=== PATIENT | female | born 1935 | race Caucasian/White ===

== ENCOUNTER 2017-01-02 19:14 | Emergency (ER) | payer MEDICARE, BC ==
[2017-01-02 19:36] VITALS: BP 146/56
--- NOTE | 2017-01-02 19:49 | EDM.PDOC ---
ED HPI GENERAL MEDICAL PROBLEM - General Chief Complaint: General Stated Complaint: POSS FALL HEADACHE Time Seen by Provider: 01/02/17 19:30 Source of Information: Reports: Patient History Limitations: Reports: Altered Mental Status (Dementia) - History of Present Illness INITIAL COMMENTS - FREE TEXT/NARRATIVE: Patient is a 81-year-old female with history of dementia/Alzheimer's who presents ED complaining of a headache, pain to the posterior aspect of her neck , and cervical neck pain. Daughter is present and states patient's mentation is unchanged. Patient recently moved from [place] to [facility]. Patient was eloping from [facility] every day for approximately 2-3 weeks. This past Sunday patient was found sitting on the floor. It was unknown if the patient fell or was just sitting down. Time. Today staff felt a small bump to the posterior aspect of the patient's head with pain present. They 're concerned the patient may have fallen. Daughter states patient does have issues with easily being aggravated. Staff states patient has been noncooperative with eating this morning. Thus not all her medications have been provided. Patient has history of asphagia as well with no new changes. Daughter noticed while driving the patient to the walk-in clinic to be evaluated that every time she pressed the brake patient will complain of pain to the posterior aspect of her head and neck. Patient did walk into the ED on her own accord with minimal difficulties. Patient does shuffle her feet which is normal. She is on a baby aspirin daily. No anticoagulants. 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: Other (see below) Other Treatments BALL ROLLING MACHINE OPERATOR: massage - Related Data Allergies Allergy/AdvReac Type Severity Reaction Status Date / Time amoxicillin Allergy Rash Verified 01/02/17 19:36 Home Meds: Home Meds Aspirin 81 mg PO DAILY 01/02/17 [History] Calcium Carbonate/Vitamin D3 [Calcium 500 + Vit D Caplet] 1 each PO DAILY [History] Cholecalciferol (Vitamin D3) [Vitamin D3] 1,000 unit PO DAILY 01/02/17 [History] Insulin Aspart [NovoLOG] 100 unit SUBCUT DAILY 01/02/17 [History] Insulin Aspart [Novolog] 6 units SQ BID 01/02/17 [History] Insulin Glarg,Human.Rec.Analog [LantUS] 24 unit SUBCUT DAILY 01/02/17 [History] LORazepam [Ativan] 0.5 mg PO Q8H PRN 01/02/17 [History] Lanolin/Min Oil/Petrolatum [Artificial Tears] 1 drop EYEBOTH BID 01/02/17 [ History] Latanoprost [Xalatan 0.005% Ophth Soln] 1 drop EYEBOTH 1400 01/02/17 [History] Levothyroxine Sodium [Synthroid] 75 mcg PO ACBREAKFAST 01/02/17 [History] Losartan [Cozaar] 50 mg PO BID 01/02/17 [History] Southview-3 Fatty Acids [Southview-3] 2,000 mg PO DAILY 01/02/17 [History] Omeprazole 20 mg PO DAILY 01/02/17 [History] PARoxetine HCl [Paxil] 10 mg PO DAILY 01/02/17 [History] Vit A,C & E/Lutein/Minerals [Healthy Eyes] 1 each PO DAILY 01/02/17 [History] Social & Family History - Tobacco Use Smoking Status *Q: Never Smoker - Recreational Drug Use Recreational Drug Use: No ED ROS GENERAL - Review of Systems Review Of Systems: See Below (difficult to obtain from patient. Daughter asks most questions.) Constitutional: Reports: Decreased Appetite. Denies: Fever, Chills, Malaise Respiratory: Reports: No Symptoms Cardiovascular: Reports: No Symptoms GI/Abdominal: Reports: No Symptoms Musculoskeletal: Reports: Neck Pain. Denies: Shoulder Pain, Arm Pain, Back Pain , Hand Pain, Leg Pain, Foot Pain Skin: Denies: Bruising Neurological: Reports: Headache. Denies: Numbness, Syncope, Tingling, Trouble Speaking, Difficulty Walking Psychiatric: Reports: No Symptoms ED EXAM, GENERAL - Physical Exam Exam: See Below Exam Limited By: No Limitations General Appearance: Alert, WD/WN, No Apparent Distress Eye Exam: Bilateral Eye: EOMI, PERRL Ears: Normal External Exam, Hearing Grossly Normal Nose: Normal Inspection Throat/Mouth: Normal Voice, No Airway Compromise Head: Other (small bump/hematoma to the posterior aspect of the head with only minimal pain. ). No: Facial Swelling, Facial Tenderness, Sinus Tenderness Neck: Normal Inspection, Supple, Limited Range of Motion, Tender Midline Respiratory/Chest: No Respiratory Distress, Lungs Clear, Normal Breath Sounds, No Accessory Muscle Use, Chest Non-Tender Cardiovascular: Normal Peripheral Pulses, Regular Rate, Rhythm Peripheral Pulses: 2+: Radial (R) GI/Abdominal: Normal Bowel Sounds, Soft, Non-Tender, No Organomegaly, No Distention, Pelvis Stable Back Exam: Normal Inspection, Full Range of Motion. No: Paraspinal Tenderness, Vertebral Tenderness Extremities: Normal Inspection, Normal Range of Motion, Non-Tender, No Pedal Edema, Normal Capillary Refill Neurological: Alert, Oriented (to self), CN II-XII Intact, Normal Cognition, No Motor/Sensory Deficits Psychiatric: Normal Affect, Normal Mood Skin Exam: Warm, Dry, Intact, Normal Color Course - Vital Signs Last Recorded V/S: Last Vital Signs Temp 98.1 F 01/02/17 19:25 Pulse 61 01/02/17 19:25 Resp 19 01/02/17 19:25 BP 146/56 H 01/02/17 19:25 Pulse Ox 100 01/02/17 19:25 - Orders/Labs/Meds Orders: Active Orders 24 hr Category Date Time Status Cervical Spine wo Cont [CT] Stat Exams 01/02/17 19:43 Taken Head wo Cont [CT] Stat Exams 01/02/17 19:43 Taken Meds: Medications Discontinued Medications Generic Name Dose Route Start Last Admin Trade Name Jarrettq PRN Reason Stop Dose Admin Acetaminophen 975 mg 01/02/17 20:10 01/02/17 20:30 Tylenol PO 01/02/17 20:11 975 mg NOW ONE Administration - Re-Assessments/Exams Free Text/Narrative Re-Assessment/Exam: Will obtain CT of the head and neck. Patient is acting appropriately. He's she' s had no new medication changes per daughter. She has minimal complaints at this time. Blood work was obtained by [facility] a few days ago thus will attempt to obtain results. At this point do not believe blood work or UA would be needed. Patient's mentation is unchanged. Blood sugar was obtained at 1738 with results of 190. Reviewed shelter notes. Patient per nursing staff recently had [facility]. These results were not available. I discussed with daughter in obtaining labs at this time. We have opted not to obtain labs or UA. Patients mentation is unchanged and she has minimal complaints. Believe this would only aggravate the patient by obtaining labs. 01/02/17 21:28 CT of the head revealed no evidence for acute transcortical infarct, acute hemorrhage, or mass effect. CT of the cervical spine impression : No acute fracture or traumatic subluxation. Patient is resting comfortably in bed. Patient did get pain relief with the above therapy. Will discharge patient home with instructions as as documented. Departure - Departure Time of Disposition: 21:31 Disposition: Home, Self-Care 01 Condition: Good Clinical Impression: Neck pain Headache Qualifiers: Headache type: unspecified Headache chronicity pattern: acute headache Intractability: not intractable Qualified Code(s): R51 - Headache - Discharge Information Referrals: Edgard Mcelroy MD [Primary Care Provider] - Forms: ED Department Discharge Additional Instructions: CT the head and neck did not reveal any acute abnormalities. On physical examination patient had no additional concerning findings. Mentation was unchanged thus no lab work was obtained at this point. Please follow up with PCP in the next week for reevaluation. Return to ED as needed for any new or worsening symptoms. Patient can take Tylenol 650 mg every 4 to 6 hours as needed for pain. - My Orders Last 24 Hours: My Active Orders 01/02/17 19:43 Cervical Spine wo Cont [CT] Stat Head wo Cont [CT] Stat - Assessment/Plan Last 24 Hours: My Active Orders 01/02/17 19:43 Cervical Spine wo Cont [CT] Stat Head wo Cont [CT] Stat
[2017-01-02] MEDS ORDERED: Acetaminophen 325 MG Tab PO ONE (20:10)
--- NOTE | 2017-01-03 08:01 | CT ---
Head CT Technique: Multiple axial sections through the brain were obtained. Intravenous contrast was not utilized. Some sections were repeated due to motion. Comparison: Previous head CT exam of 02/03/15. Findings: Ventricles along with basal cisterns and sulci over the convexities are moderately prominent. Diminished density is noted within the periventricular and subcortical white matter compatible with small vessel ischemic demyelination change. Several old lacunar infarcts noted within the basal ganglia. Atrophy includes the cerebellum. No other abnormal parenchymal densities are seen. No evidence of intracranial hemorrhage. No midline shift or mass effect is seen. Atherosclerotic change seen within the carotid siphon. Bone window settings were reviewed which show the visualized sinuses to appear clear. No acute calvarial abnormality is identified. Impression: 1. Senescent change as described above. 2. Nothing acute is identified on noncontrast head CT study. Diagnostic code #2 I agree with preliminary report issued by [employer] ([facility] preliminary report dictated on 01/02/17, 10:00 PM Central Time)
--- NOTE | 2017-01-03 08:01 | CT ---
CT cervical spine Technique: Multiple axial sections were obtained from above the C1 level inferiorly to the inferior T2 level. Reconstructed sagittal and coronal images were reviewed. Findings: Degenerative change is noted between the dens and anterior arch of C1. Mild spondylolisthesis is noted at C4-C5 due to degenerative apophyseal change. Fairly severe disc space narrowing is noted C5-C6 with posterior spurring and anterior spurring. Other degenerative apophyseal change is seen throughout the cervical spine. Mild to moderate bilateral neural foraminal stenosis noted at C5-C6. Degenerative spurring causes moderate left-sided neural foraminal stenosis at C4-C5. Moderate left-sided neural foraminal stenosis also noted at C3-C4 due to degenerative spurring. Degenerative change noted within the uncovertebral joints at C5-C6. Bony structures are osteopenic. No fracture is seen. No acute subluxation is identified. Impression: 1. Degenerative change as described above. 2. No acute abnormality is identified on CT study of the cervical spine. Diagnostic code #2 I agree with preliminary report issued by [employer] [facility] ([facility] preliminary report dictated on 01/02/17, 10:13 PM Central Time)
== END 2017-01-02 21:55 | disposition home or self-care (01) ==
LOC: JD.ED 19:14
DX: R51 Headache (principal); M54.2 Cervicalgia; Z79.82 Long term (current) use of aspirin; Z79.899 Other long term (current) drug therapy; Z88.1 Allergy status to other antibiotic agents
CPT/HCPCS: 70450; 72125; 99284; A9270; 99283

== ENCOUNTER 2017-04-28 17:26 | Emergency (ER) | payer MEDICARE, BC ==
[2017-04-28 18:14] VITALS: BP 154/57
--- NOTE | 2017-04-28 18:16 | EDM.PDOC ---
ED HPI GENERAL MEDICAL PROBLEM - General Chief Complaint: Lower Extremity Injury/Pain Stated Complaint: FALL,BACK PAIN Time Seen by Provider: 04/28/17 18:15 Source of Information: Reports: Patient - History of Present Illness INITIAL COMMENTS - FREE TEXT/NARRATIVE: Patient is brought here today by FACS TEACHER from [facility] for evaluation for possible lower extremity injury. Patient reportedly had 2 falls today she is normally ambulatory without assistance. The first fall was witnessed and patient tripped will reaching for something. She was assisted to standing position and ambulated throughout the day without issue. The second fall was not witnessed, patient was found on the floor in her room. When she was assisted to a standing position. She was unable to bear weight on the right. Patient does have chronic dementia and expressive aphasia. FACS TEACHER states that she is typically confused but does speak at times. She does have chronic illnesses including hypothyroidism, type 2 diabetes, hyperlipidemia, osteoporosis, hypertension and history of colon cancer. Patient is DNR per her paperwork from [facility]. - Related Data Allergies Allergy/AdvReac Type Severity Reaction Status Date / Time amoxicillin Allergy Rash Verified 04/28/17 18:14 Home Meds: Home Meds Aspirin 81 mg PO DAILY 01/02/17 [History] Calcium Carbonate/Vitamin D3 [Calcium 500 + Vit D Caplet] 1 each PO DAILY [History] Cholecalciferol (Vitamin D3) [Vitamin D3] 1,000 unit PO DAILY 01/02/17 [History] Insulin Aspart [NovoLOG] 100 unit SUBCUT DAILY 01/02/17 [History] Insulin Aspart [Novolog] 6 units SQ BID 01/02/17 [History] Insulin Glarg,Human.Rec.Analog [LantUS] 24 unit SUBCUT DAILY 01/02/17 [History] LORazepam [Ativan] 0.5 mg PO Q8H PRN 01/02/17 [History] Lanolin/Min Oil/Petrolatum [Artificial Tears] 1 drop EYEBOTH BID 01/02/17 [ History] Latanoprost [Xalatan 0.005% Ophth Soln] 1 drop EYEBOTH 1400 01/02/17 [History] Levothyroxine Sodium [Synthroid] 75 mcg PO ACBREAKFAST 01/02/17 [History] Losartan [Cozaar] 50 mg PO BID 01/02/17 [History] Hayden-3 Fatty Acids [Hayden-3] 2,000 mg PO DAILY 01/02/17 [History] Omeprazole 20 mg PO DAILY 01/02/17 [History] PARoxetine HCl [Paxil] 10 mg PO DAILY 01/02/17 [History] Vit A,C & E/Lutein/Minerals [Healthy Eyes] 1 each PO DAILY 01/02/17 [History] Past Medical History HEENT History: Reports: Impaired Vision Cardiovascular History: Reports: High Cholesterol, Hypertension, Other (See Below) Other Cardiovascular History: bradycardia Genitourinary History: Reports: Other (See Below) Other Genitourinary History: nephrolithiasis Musculoskeletal History: Reports: Osteoarthritis, Osteoporosis Neurological History: Reports: Other (See Below) Other Neuro History: dementia Psychiatric History: Reports: Anxiety, Depression Endocrine/Metabolic History: Reports: Hypothyroidism, Vitamin D Deficiency Oncologic (Cancer) History: Reports: Basal Cell Carcinoma, Colon Dermatologic History: Reports: Other (See Below) Other Dermatologic History: basal cell carcinome - Past Surgical History GI Surgical History: Reports: Other (See Below) Other GI Surgeries/Procedures: colon cancer Social & Family History - Family History Family Medical History: Noncontributory - Tobacco Use Smoking Status *Q: Never Smoker Second Hand Smoke Exposure: No - Caffeine Use Caffeine Use: Reports: Coffee - Recreational Drug Use Recreational Drug Use: No Review of Systems - Review of Systems Review Of Systems: See Below Constitutional: Reports: No Symptoms Musculoskeletal: Reports: Other (Right leg/hip pain, not bearing weight) Neurological: Reports: Confusion (Known dementia and expressive aphasia.) ED EXAM, GENERAL - Physical Exam Exam: See Below Exam Limited By: Altered Mental Status (Dementia, confusion) General Appearance: Alert, Moderate Distress Respiratory/Chest: No Respiratory Distress, Lungs Clear, Normal Breath Sounds Cardiovascular: Normal Peripheral Pulses, Regular Rate, Rhythm, No Murmur Peripheral Pulses: 1+: Dorsalis Pedis (L), Dorsalis Pedis (R), 2+: Posterior Tibial (L), Posterior Tibial (R) GI/Abdominal: Normal Bowel Sounds, Soft, Non-Tender Extremities: Normal Inspection, Other (Tenderness to right hip/pelvis. Limited ROM right hip due to pain.) Neurological: Alert, Confused, Other (Dementia, patient oriented to person. ) Psychiatric: Anxious Skin Exam: Warm, Dry, Intact EKG INTERPRETATION EKG Date: 04/28/17 Rhythm: NSR Rate (Beats/Min): 71 Course - Vital Signs Last Recorded V/S: Last Vital Signs Temp 97.4 F 04/28/17 18:00 Pulse 58 L 04/28/17 18:00 Resp 18 04/28/17 18:00 BP 154/57 H 04/28/17 18:00 Pulse Ox 100 04/28/17 18:00 - Orders/Labs/Meds Orders: Active Orders 24 hr Category Date Time Status EKG 12 Lead [EKG Documentation Completion] [RC] STAT Care 04/28/17 18:32 Active [place]pa Catheter Insertion [Insert Urinary Catheter] [OM. Care 04/28/17 19:30 Ordered PC] Q24H Urinary Catheter Assessment [RC] ASDIRECTED Care 04/28/17 19:47 Active Chest 1V Frontal [CR] Stat Exams 04/28/17 18:33 Taken Head wo Cont [CT] Stat Exams 04/28/17 18:33 Taken Hip Min 1V w Pelvis Rt [CR] Stat Exams 04/28/17 18:33 Taken Sodium Chloride 0.9% [Normal Saline] 1,000 ml Med 04/28/17 18:37 Active IV ONETIME Medication Orders Sodium Chloride (Normal Saline) 1,000 mls @ 250 mls/hr IV ONETIME ONE Stop: 04/28/17 22:36 Last Admin: 04/28/17 19:36 Dose: 250 mls/hr Labs: Laboratory Tests 04/28/17 04/28/17 04/28/17 Range/Units 19:30 19:30 19:44 WBC 12.91 H (3.98-10.04) K/mm3 RBC 4.13 (3.98-5.22) M/mm3 Hgb 12.2 (11.2-15.7) gm/L Hct 36.1 (34.1-44.9) % MCV 87.4 (79.4-94.8) fl MCH 29.5 (25.6-32.2) pg MCHC 33.8 (32.2-35.5) g/dl RDW Std Deviation 41.8 (36.4-46.3) fL Plt Count 240 (182-369) K/mm3 MPV 9.3 L (9.4-12.3) fl Neutrophils % (Manual) 79 H (40-60) % Band Neutrophils % 0 (0-10) % Lymphocytes % (Manual) 14 L (20-40) % Atypical Lymphs % 0 % Monocytes % (Manual) 7 (2-10) % Eosinophils % (Manual) 0 L (0.7-5.8) % Basophils % (Manual) 0 L (0.1-1.2) Platelet Estimate Adequate RBC Morph Comment Normal Sodium 138 (136-145) mEq/L Potassium 4.5 (3.5-5.1) mEq/L Chloride 102 (98-107) mEq/L Carbon Dioxide 26 (21-32) mEq/L Anion Gap 14.5 (5-15) BUN 27 H (7-18) mg/dL Creatinine 1.2 H (0.55-1.02) mg/dL Est Cr Clr Drug Dosing 33.94 mL/min Estimated GFR (MDRD) 43 (>60) mL/min BUN/Creatinine Ratio 22.5 H (14-18) Glucose 219 H (83-115) mg/dL Calcium 9.2 (8.5-10.1) mg/dL Total Bilirubin 0.4 (0.2-1.0) mg/dL AST 27 (15-37) U/L ALT 31 (14-59) U/L Alkaline Phosphatase 110 (46-116) U/L Total Protein 7.2 (6.4-8.2) g/dl Albumin 3.4 (3.4-5.0) g/dl Globulin 3.8 gm/dL Albumin/Globulin Ratio 0.9 L (1-2) Urine Color Yellow (Yellow) Urine Appearance Clear (Clear) Urine pH 6.0 (5.0-8.0) Ur Specific Howard 1.025 (1.005-1.030) Urine Protein Negative (Negative) Urine Glucose (UA) Negative (Negative) Urine Ketones Negative (Negative) Urine Occult Blood Negative (Negative) Urine Nitrite Positive H (Negative) Urine Bilirubin Negative (Negative) Urine Urobilinogen 0.2 (0.2-1.0) Ur Leukocyte Esterase Negative (Negative) Urine RBC 0-5 (0-5) /hpf Urine WBC 5-10 H (0-5) /hpf Ur Epithelial Cells 0-5 (0-5) /hpf Urine Bacteria Moderate H (FEW) /hpf Urine Mucus Moderate H (FEW) /hpf Meds: Medications Generic Name Dose Route Start Last Admin Trade Name Dea PRN Reason Stop Dose Admin Sodium Chloride 1,000 mls @ 250 mls/hr 04/28/17 18:37 04/28/17 19:36 Normal Saline IV 04/28/17 22:36 250 mls/hr ONETIME ONE Administration Discontinued Medications Generic Name Dose Route Start Last Admin Trade Name Dea PRN Reason Stop Dose Admin Hydromorphone HCl 0.25 mg 04/28/17 18:30 04/28/17 19:36 Dilaudid IVPUSH 04/28/17 18:31 0.25 mg ONETIME ONE Administration - Re-Assessments/Exams Free Text/Narrative Re-Assessment/Exam: Exam limited by patient's dementia. CT head demonstrates stable moderate atrophy but no acute changes. Portable 1 view chest x-ray with cardiomegaly, lungs without effusion or consolidation. Official radiology report is pending. Pelvis AP demonstrates fractures of inferior and superior rami on the right. Pompa catheter is in place. Our facility is full and does not have an inpatient admission, discussed with Dr. Aparicio/hospitalist at [facility] who agrees to accept the patient for pain control and initiation of rehabilitation. Patient will be transported by ambulance as she will be unable to ambulate or ride in a seated position at this time. Patient's CODE STATUS is DNR per her [facility] as well as verbal confirmation by her daughter Sydnie Kothari. 04/28/17 19:55 04/28/17 20:20 04/28/17 20:22 04/28/17 20:24 Departure - Departure Time of Disposition: 20:25 Disposition: DC/Tfer to Hospice-Med Fac 51 Condition: Fair Clinical Impression: Dementia Pelvic fracture Qualifiers: Encounter type: initial encounter Pelvic bone location: multiple parts Fracture type: closed - Discharge Information Referrals: Edgard Mcelroy MD [Primary Care Provider] - Forms: ED Department Discharge - My Orders Last 24 Hours: My Active Orders 04/28/17 18:32 EKG 12 Lead [EKG Documentation Completion] [RC] STAT 04/28/17 18:33 Chest 1V Frontal [CR] Stat Head wo Cont [CT] Stat Hip Min 1V w Pelvis Rt [CR] Stat 04/28/17 18:37 Sodium Chloride 0.9% [Normal Saline] 1,000 ml IV ONETIME 12/02/17 19:30 Pompa Catheter Insertion [Insert Urinary Catheter] [OM.PC] Q24H 04/28/17 19:47 Urinary Catheter Assessment [RC] ASDIRECTED - Assessment/Plan Last 24 Hours: My Active Orders 04/28/17 18:32 EKG 12 Lead [EKG Documentation Completion] [RC] STAT 04/28/17 18:33 Chest 1V Frontal [CR] Stat Head wo Cont [CT] Stat Hip Min 1V w Pelvis Rt [CR] Stat 04/28/17 18:37 Sodium Chloride 0.9% [Normal Saline] 1,000 ml IV ONETIME 04/28/17 19:30 Pompa Catheter Insertion [Insert Urinary Catheter] [OM.PC] Q24H 04/28/17 19:47 Urinary Catheter Assessment [RC] ASDIRECTED
[2017-04-28] MEDS ORDERED: HYDROmorphone 0.5 MG/0.5 ML Syringe IVPUSH ONE (18:30)
[2017-04-28] MEDS ORDERED: Sodium Chloride 0.9% 1,000 ML IV ONE (18:37)
--- NOTE | 2017-04-30 07:25 | CT ---
Head CT Technique: Multiple axial sections through the brain were obtained. Intravenous contrast was not utilized. Comparison: Prior head CT exam of 01/02/17. Findings: Ventricles along with basal cisterns and sulci over the convexities are moderately prominent. Old lacunar infarcts are noted within the basal ganglia. Diffuse diminished density is noted within portions of the periventricular and subcortical white matter compatible with small vessel ischemic demyelination change. No evidence of intracranial hemorrhage. No midline shift or mass effect is seen. Bone window settings were reviewed which show no acute calvarial abnormality. Visualized sinuses are clear. Atherosclerotic calcification is seen within the carotid siphon. Impression: 1. Generalized atrophy and other senescent change. 2. No acute intracranial abnormality is identified. No significant change is seen from prior head CT exam. Diagnostic code #2 I agree with preliminary report issued by [employer] ([facility] preliminary report dictated on 04/28/17, 8:32 PM Central Time)
--- NOTE | 2017-04-30 07:25 | CR ---
Chest: Frontal view of the chest was obtained. Comparison: Prior chest x-ray of 02/03/15. Heart size is slightly enlarged. Upper mediastinum is within normal limits. Atherosclerotic calcification is noted within the aortic knob. Pulmonary vessels show mild upper lobe vascular redistribution. Lungs otherwise are clear. Mild scoliosis is present within the spine. Impression: 1. Slight cardiomegaly and mild upper lobe pulmonary vascular redistribution suspicious for early CHF. Diagnostic code #3
--- NOTE | 2017-04-30 07:25 | CR ---
Pelvis and right hip: AP view of the pelvis was obtained as well as less than optimal frog-leg lateral view of the right hip. Comparison: No previous study. Fractures are identified within the superior and inferior pubic ramus on the right side. Questionable callus within these pubic rami fractures is seen and these may be subacute in age. Mild joint space narrowing is within both hips. Sclerotic area is noted within the intertrochanteric region of the right hip compatible with an incidental bone island. Bony structures are osteopenic. Scoliosis is partially visualized within the spine with slight disc space narrowing seen laterally at L4-L5. Impression: 1. Fractures within the inferior and superior pubic ramus on the right side. Possible callus is present and findings felt to be subacute in age. 2. Other incidental findings. Diagnostic code #3
== END 2017-04-28 20:45 | disposition hospice, inpatient (51) ==
LOC: JD.ED 17:26
DX: S32.501A Unspecified fracture of right pubis, initial encounter for closed fracture (principal); F03.90 Unspecified dementia, unspecified severity, without behavioral disturbance, psychotic disturbance, mood disturbance, and anxiety; I10 Essential (primary) hypertension; Z88.1 Allergy status to other antibiotic agents; Z79.82 Long term (current) use of aspirin; Z79.899 Other long term (current) drug therapy; Z79.4 Long term (current) use of insulin; W01.0XXA Fall on same level from slipping, tripping and stumbling without subsequent striking against object, initial encounter
CPT/HCPCS: 36415; 51702; 70450; 71010; 73501; 80053; 81001; 85025; 87086; 87088; 87186; 93005; 96361; 96374; 99285; J1170; J7040; 51701; 99284